=== PATIENT | female | born 1980 | race Two or more races ===

== ENCOUNTER 2017-04-30 14:16 | Emergency (ER) | payer SELFPAY ==
[~2017-04-30] VITALS: Ht 175.3 cm; Wt 127.1 kg
[2017-04-30 17:16] LABS: BLOOD UREA NITROGEN 11 mg/dL (7-18)
[2017-04-30 17:36] LABS: PATH.CAST-FLAG NOT PRESENT; SPERM-FLAG NOT PRESENT; SRC-FLAG NOT PRESENT; XTAL-FLAG NOT PRESENT; YLC-FLAG NOT PRESENT
[2017-04-30 18:48] VITALS: BP 157/85
== END 2017-04-30 19:49 | disposition home or self-care (01) ==
LOC: ED 17:01
DX: S23.3XXA Sprain of ligaments of thoracic spine, initial encounter (principal); S33.5XXA Sprain of ligaments of lumbar spine, initial encounter; V43.52XA Car driver injured in collision with other type car in traffic accident, initial encounter; Y93.89 Activity, other specified; Y99.8 Other external cause status; Y92.89 Other specified places as the place of occurrence of the external cause
CPT/HCPCS: 36415; 76830; 80048; 81001; 82040; 84703; 85025; 87086